=== PATIENT | female | born 1950 | race Hispanic/Latino ===

== ENCOUNTER 2017-05-15 15:16 | Outpatient (CLI) | payer MEDICARE, OTHER ==
--- NOTE | 2017-05-15 17:01 | XRay Report ---
XRAY LUMBAR SPINE THREE VIEWS: 05/15/17 15:16:00 CLINICAL: Low back pain. FINDINGS: Mild osteopenia. Slight mid depression of the superior endplate of L2. The rest of the bodies are normal height. Normal alignment. The disc spaces are normal. Multilevel facet joint arthropathy. The pedicles are intact. Small lateral osteophytes most levels. Normal soft tissues. IMPRESSION: 1. Osteopenia and mild L2 mid wedge compression fracture of uncertain age. 2. Multilevel facet joint arthropathy.
== END 2017-05-15 15:17 | disposition home or self-care (01) ==
LOC: SPVIMAG 15:16
PROVIDERS: ATTEND Orthopaedic Surgery Sports Medicine
DX: M48.56XA Collapsed vertebra, not elsewhere classified, lumbar region, initial encounter for fracture (principal); M85.88 Other specified disorders of bone density and structure, other site; M12.88 Other specific arthropathies, not elsewhere classified, other specified site
CPT/HCPCS: 72100